=== PATIENT | female | born 2000 | race Caucasian/White ===

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

== ENCOUNTER 2018-10-24 14:25 | Emergency (ER) | payer SELFPAY ==
[2018-10-24 14:39] VITALS: BP 126/84; TEMP 98.1; O2SAT 97
--- NOTE | 2018-10-24 14:53 | ED.PDOC ---
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 SHE WAS SEEN AT THE CLINIC AND SENT HERE FOR EVALUATION. Severity: moderate Improving Factors: nothing Worsening Factors: nothing Associated Symptoms: denies symptoms Allergies/Adverse Reactions: Allergies NO KNOWN ALLERGY Allergy (Verified 12/23/17 23:06) Home Medications: Ambulatory Orders Medroxyprogesterone Acetate [Provera] 10 mg PO DAILY #10 tab 10/24/18 Norgestimate-Ethinyl Estradiol [Norgestimate/Ethinyl Estr] 1 tab PO DAILY #30 tab 10/24/18 Review of Systems - Review of Systems Constitutional: States: no symptoms reported EENTM: States: no symptoms reported Respiratory: States: no symptoms reported Cardiology: States: no symptoms reported Gastrointestinal/Abdominal: States: abdominal pain Genitourinary: States: other - MENSTRUAL CRAMPS Musculoskeletal: States: no symptoms reported Skin: States: no symptoms reported Neurological: States: no symptoms reported Endocrine: States: no symptoms reported Hematologic/Lymphatic: States: no symptoms reported Past Medical History (General) - Patient Medical History Hx Seizures: No Hx Stroke: No Hx Dementia: No Hx Asthma: No Hx of COPD: No Hx Cardiac Disorders: No Hx Congestive Heart Failure: No Hx Pacemaker: No Hx Hypertension: No Hx Thyroid Disease: No Hx Diabetes: No Hx Gastroesophageal Reflux: No Hx Renal Disease: No Hx Cancer: No Hx of HIV: No Hx Hepatitis C: No Hx MRSA: No Surgical History: no surgical history - Vaccination History Hx Tetanus, Diphtheria Vaccination: No Hx Influenza Vaccination: No Hx Pneumococcal Vaccination: No - Social History Hx Tobacco Use: No Hx Alcohol Use: No Hx Substance Use: No Hx Substance Use Treatment: No Hx Depression: No - Female History Patient is a Female of Child Bearing Age (10 -59 yrs old): Yes - irregular periods-last one 6 months ago Patient : No Family Medical History - Family History Mother Living Status: Still Living Hx Family Hypertension: Yes Physical Exam - Physical Exam General Appearance: Anxious, Well Developed, Well Groomed, Well Hydrated, Well Nourished Eye Exam: bilateral normal Ears, Nose, Throat: hearing grossly normal Neck: non-tender, full range of motion Respiratory: chest non-tender, lungs clear, normal breath sounds Cardiovascular/Chest: normal peripheral pulses, regular rate, rhythm, no edema, no gallop Peripheral Pulses: radial,right: 2+, radial,left: 2+ Gastrointestinal/Abdominal: normal bowel sounds, non tender, soft Back Exam: normal inspection, no CVA tenderness Extremity: normal range of motion, non-tender, normal inspection Skin Exam: normal color Progress - Progress Progress: 10/24/18 15:37 Laboratory Results WBC 9.1 K/mm3 (4.8-10.8) 10/24/18 14:50 RBC 4.66 M/mm3 (4.20-5.40) 10/24/18 14:50 Hgb 13.2 gm/dL (12.0-16.0) 10/24/18 14:50 Hct 39.3 % (36.0-47.0) 10/24/18 14:50 MCV 84.5 fl (81.0-99.0) 10/24/18 14:50 MCH 28.2 pg (27.0-31.0) 10/24/18 14:50 MCHC 33.4 g/dL (33.0-37.0) 10/24/18 14:50 RDW 13.8 % (11.5-14.5) 10/24/18 14:50 Plt Count 239 K/mm3 (130-400) 10/24/18 14:50 MPV 8.7 fl (7.40-10.4) 10/24/18 14:50 Absolute Neuts (auto) 6.00 K/uL (1.8-6.8) 10/24/18 14:50 Absolute Lymphs (auto) 2.40 K/uL (1.0-3.4) 10/24/18 14:50 Absolute Monos (auto) 0.60 K/uL (0.2-0.8) 10/24/18 14:50 Absolute Eos (auto) 0.00 K/uL (0.0-0.4) 10/24/18 14:50 Absolute Basos (auto) 0.00 K/uL (0.0-0.1) 10/24/18 14:50 Neutrophils % 66.1 % (42.0-78.0) 10/24/18 14:50 Lymphocytes % 26.1 % (20.0-50.0) 10/24/18 14:50 Monocytes % 6.9 % (2.0-9.0) 10/24/18 14:50 Eosinophils % 0.5 % (1.0-5.0) L 10/24/18 14:50 Basophils % 0.4 % (0.0-2.0) 10/24/18 14:50 Sodium 137 mmol/L (135-145) 10/24/18 14:50 Potassium 3.5 mmol/L (3.6-5.0) L 10/24/18 14:50 Chloride 105 mmol/L (101-111) 10/24/18 14:50 Carbon Dioxide 23 mmol/L (21-31) 10/24/18 14:50 Anion Gap 12.5 (12-18) 10/24/18 14:50 BUN 9 mg/dL (7-18) 10/24/18 14:50 Creatinine < 0.40 mg/dL (0.6-1.3) L 10/24/18 14:50 BUN/Creatinine Ratio 22.0 (10-20) H 10/24/18 14:50 Random Glucose 98 mg/dL (70-105) 10/24/18 14:50 Serum Osmolality 272.5 mOsm/L (275-295) L 10/24/18 14:50 Calcium 9.0 mg/dL (8.4-10.2) 10/24/18 14:50 Total Bilirubin 0.4 mg/dL (0.2-1.0) 10/24/18 14:50 AST 20 IU/L (10-42) 10/24/18 14:50 ALT 27 IU/L (10-60) 10/24/18 14:50 Alkaline Phosphatase 74 IU/L (75-270) L 10/24/18 14:50 Serum Total Protein 7.8 gm/dL (6.4-8.2) 10/24/18 14:50 Albumin 4.4 g/dl (3.2-5.5) 10/24/18 14:50 Globulin 3.4 gm/dL (2.3-3.5) 10/24/18 14:50 Albumin/Globulin Ratio 1.3 (1.1-1.9) 10/24/18 14:50 Serum HCG, Qual Negative 10/24/18 14:50 Departure - Departure Clinical Impression: Dysfunctional uterine bleeding Time of Disposition: 15:40 Disposition: Discharge to Home for Condition: Good Departure Forms: ED Discharge - Pt. Copy, Patient Portal Self Enrollment Instructions: Heavy Periods (DC) Diet: resume usual diet Prescriptions: Medroxyprogesterone Acetate [Provera] 10 mg PO DAILY #10 tab Norgestimate-Ethinyl Estradiol [Norgestimate/Ethinyl Estr] 1 tab PO DAILY #30 tab Home Medications: Ambulatory Orders Medroxyprogesterone Acetate [Provera] 10 mg PO DAILY #10 tab 10/24/18 Norgestimate-Ethinyl Estradiol [Norgestimate/Ethinyl Estr] 1 tab PO DAILY #30 tab 10/24/18
== END 2018-10-24 15:57 | disposition home health service (06) ==
LOC: ER 14:25
DX: N93.8 Other specified abnormal uterine and vaginal bleeding (principal)

== ENCOUNTER 2018-11-07 13:52 | Emergency (ER) | payer SELFPAY ==
[2018-11-07 14:29] VITALS: O2SAT 99
[2018-11-07] MEDS ORDERED: PENICILLIN BENZATHINE 1.2 MU 1.2 MU/2 ML SYG IM ONE (14:40)
--- NOTE | 2018-11-07 14:44 | ED.PDOC ---
History of Present Illness - General Chief Complaint: ENT Problem Stated Complaint: sore throat,ear ache Time Seen by Provider: 11/07/18 14:09 Source: patient Exam Limitations: no limitations - History of Present Illness Initial Comments: the patient is a 18-year-old female presenting to the emergency room secondary to symptoms of sore throat along with nasal congestion and left ear pain for the last 24-48 hours. Low-grade fevers. Mild nausea but no vomiting. Timing/Duration: 24 hours Severity: moderate Improving Factors: nothing Worsening Factors: nothing Associated Symptoms: cough, fever/chills, loss of appetite, malaise Allergies/Adverse Reactions: Allergies NO KNOWN ALLERGY Allergy (Verified 12/23/17 23:06) Home Medications: Ambulatory Orders Norgestimate-Ethinyl Estradiol [Norgestimate/Ethinyl Estr] 1 tab PO DAILY #30 tab 10/24/18 Review of Systems - Review of Systems Constitutional: States: fever, malaise EENTM: States: nose congestion, throat pain Respiratory: States: no symptoms reported Cardiology: States: no symptoms reported Gastrointestinal/Abdominal: States: nausea Genitourinary: States: no symptoms reported Musculoskeletal: States: no symptoms reported Skin: States: no symptoms reported Neurological: States: no symptoms reported Endocrine: States: no symptoms reported All other Systems: No Change from Baseline Past Medical History (General) - Patient Medical History Hx Seizures: No Hx Stroke: No Hx Dementia: No Hx Asthma: No Hx of COPD: No Hx Cardiac Disorders: No Hx Congestive Heart Failure: No Hx Pacemaker: No Hx Hypertension: No Hx Thyroid Disease: No Hx Diabetes: No Hx Gastroesophageal Reflux: No Hx Renal Disease: No Hx Cancer: No Hx of HIV: No Hx Hepatitis C: No Hx MRSA: No Surgical History: no surgical history - Vaccination History Hx Tetanus, Diphtheria Vaccination: No Hx Influenza Vaccination: No Hx Pneumococcal Vaccination: No - Social History Hx Tobacco Use: No Hx Alcohol Use: No Hx Substance Use: No Hx Substance Use Treatment: No Hx Depression: No - Female History Patient is a Female of Child Bearing Age (10 -59 yrs old): Yes Patient : No Family Medical History - Family History Mother Living Status: Still Living Hx Family Hypertension: Yes Physical Exam - Physical Exam General Appearance: Alert, Comfortable, No apparent distress Eye Exam: bilateral normal Ears, Nose, Throat: hearing grossly normal, pharyngeal erythema Neck: full range of motion, supple Respiratory: lungs clear, normal breath sounds, no respiratory distress, no accessory muscle use Cardiovascular/Chest: normal peripheral pulses, regular rate, rhythm, no edema Peripheral Pulses: radial,right: 2+, radial,left: 2+ Gastrointestinal/Abdominal: non tender, soft Rectal Exam: deferred Back Exam: no CVA tenderness, no vertebral tenderness Extremity: non-tender, normal inspection, no pedal edema, no calf tenderness, normal capillary refill 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 She does have some inner ear pressure but no obvious infection there. She has tested positive for strep throat and received a dose of Bicillin LA. She can use Motrin to help reduce pain and pressure. She can also use [id number] Rhinocort twice daily for the next few days to help reduce nasal congestion. ER warnings were given. Keep routine follow up with primary care doctor otherwise. influenza test was negative. 11/07/18 15:06 Departure - Departure Clinical Impression: Streptococcal sore throat Disposition: Discharge to Home or Self Care Condition: Fair Departure Forms: ED Discharge - Pt. Copy, Patient Portal Self Enrollment Instructions: DI for Ear Pain-Adult, Sore Throat, Adult (DC) Diet: regular diet Activity: increase activity as tolerated Home Medications: Ambulatory Orders Norgestimate-Ethinyl Estradiol [Norgestimate/Ethinyl Estr] 1 tab PO DAILY #30 tab 10/24/18 Additional Instructions: the patient's 18-year-old female presenting to the emergency room secondary to sore throat and ear pain. She does have some inner ear pressure but no obvious infection there. She has tested positive for strep throat and received a dose of Bicillin LA. She can use Motrin to help reduce pain and pressure. She can also use [id number] Rhinocort twice daily for the next few days to help reduce nasal congestion. ER warnings were given. Keep routine follow up with primary care doctor otherwise
[2018-11-07 15:19] VITALS: BP 119/75; TEMP 96.8
== END 2018-11-07 15:21 | disposition home or self-care (01) ==
LOC: ER 13:52
DX: J02.0 Streptococcal pharyngitis (principal)
CPT/HCPCS: 87502; 87880; J0561

== ENCOUNTER 2021-01-11 14:37 | Emergency (ER) | payer SELFPAY ==
--- NOTE | 2021-01-11 15:32 | ED.PDOC ---
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 PREVIOUSLY ON CONTROL FOR HER DUB, RAN OUT, DIDN'T GET REFILLED, ONLY GOES TO URGENT CARE FOR HER HEALTHCARE. SHE WAS GETTING HER CONTROL THRU AN ONLINE / VIRTUAL DOCTOR SOURCE. SHE HAS USED 3 TAMPONS TODAY. DENIES ANY SOAK THRU BLEEDING ONTO CLOTHS, BUT SHE IS ALSO USING A PAD IN HER UNDERWEAR. Allergies/Adverse Reactions: Allergies NO KNOWN ALLERGY Allergy (Verified 01/11/21 14:52) Home Medications: Ambulatory Orders Norgestimate-Ethinyl Estradiol [Norgestimate/Ethinyl Estr] 1 tab PO DAILY #30 tab 10/24/18 medroxyPROGESTERone TAB [Provera] 10 mg PO DAILY 10 Days #20 tab 01/11/21 Review of Systems - Review of Systems Constitutional: States: no symptoms reported EENTM: States: no symptoms reported Respiratory: States: no symptoms reported Cardiology: States: no symptoms reported Gastrointestinal/Abdominal: States: no symptoms reported Genitourinary: States: no symptoms reported Skin: States: no symptoms reported Neurological: States: no symptoms reported Endocrine: States: no symptoms reported Hematologic/Lymphatic: States: no symptoms reported Past Medical History (General) - Patient Medical History Hx Seizures: No Hx Stroke: No Hx Dementia: No Hx Asthma: No Hx of COPD: No Hx Cardiac Disorders: No Hx Congestive Heart Failure: No Hx Pacemaker: No Hx Hypertension: No Hx Thyroid Disease: No Hx Diabetes: No Hx Gastroesophageal Reflux: No Hx Renal Disease: No Hx Cancer: No Hx of HIV: No Hx Hepatitis C: No Hx MRSA: No Surgical History: no surgical history - Vaccination History Hx Tetanus, Diphtheria Vaccination: No Hx Influenza Vaccination: No Hx Pneumococcal Vaccination: No - Social History Hx Tobacco Use: No Hx Alcohol Use: No Hx Substance Use: No Hx Substance Use Treatment: No Hx Depression: No - Female History Patient : No Family Medical History - Family History Mother Living Status: Still Living Hx Family Hypertension: Yes Physical Exam - Physical Exam General Appearance: Alert, Comfortable, Well Developed, Well Groomed, Well Hydrated, Well Nourished Eyes, Ears, Nose, Throat Exam: normal ENT inspection, TMs normal, pharynx normal Neck: non-tender, full range of motion, supple, normal inspection Cardiovascular/Respiratory: regular rate, rhythm, no M/R/G, normal peripheral pulses, no JVD Gastrointestinal/Abdominal: normal bowel sounds, non tender, soft, no organomegaly Back Exam: normal inspection, no CVA tenderness, no vertebral tenderness Extremity: normal range of motion, non-tender, normal inspection 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 Copy, Patient Portal Self Enrollment Instructions: Heavy Periods Prescriptions: medroxyPROGESTERone TAB [Provera] 10 mg PO DAILY 10 Days #20 tab Home Medications: Ambulatory Orders Norgestimate-Ethinyl Estradiol [Norgestimate/Ethinyl Estr] 1 tab PO DAILY #30 tab 10/24/18 medroxyPROGESTERone TAB [Provera] 10 mg PO DAILY 10 Days #20 tab 01/11/21
[2021-01-11 15:50] VITALS: BP 114/85; TEMP 97.1; O2SAT 99
== END 2021-01-11 15:50 | disposition home or self-care (01) ==
LOC: ER 14:37
DX: N93.8 Other specified abnormal uterine and vaginal bleeding (principal)